=== PATIENT | male | born 1985 | race Caucasian/White ===

== ENCOUNTER 2022-12-21 09:28 | Emergency (ER) | payer MEDICAID ==
[~2022-12-21] VITALS: Ht 180.3 cm; Wt 110.0 kg
[2022-12-21 10:47] LABS: BASOPHILS % (AUTO) 0.8 % (0.0-2.0); EOSINOPHILS % (AUTO) 3.6 % (1.0-6.0); HEMATOCRIT 46.5 % (41-53); HEMOGLOBIN 15.5 g/dL (13.5-17.5); LYMPHOCYTES # (AUTO) 1.8 K/uL (1.0-4.8); LYMPHOCYTES % (AUTO) 21.7 % (22.0-44.0); MEAN CORPUSCULAR HEMOGLOBIN 26.3 pg (26.0-34.0); MEAN CORPUSCULAR HGB CONC 33.2 G/dL (31.0-37.0); MEAN CORPUSCULAR VOLUME 79 fL (80-100); MONOCYTES # (AUTO) 0.5 K/uL (0.1-1.0); MONOCYTES % (AUTO) 5.9 % (2.0-9.0); NEUTROPHILS # (AUTO) 5.6 K/uL (1.8-7.7); PLATELET COUNT (AUTO) 238 K/uL (150-450); RED BLOOD CELL COUNT(AUTO) 5.87 MIL/uL (4.50-5.90); RED CELL DISTRIBUTION WIDTH 13.9 % (11.5-14.5)
[2022-12-21 10:56] LABS: COVID AG,FIA SOURCE NASAL SWAB
[2022-12-21 10:58] LABS: ANION GAP 11 mmol/L (8-16); CALCIUM, TOTAL 9.2 mg/dL (8.8-10.5); CARBON DIOXIDE 27 mmol/L (22-29); CHLORIDE 98 mmol/L (98-107); CREATININE 1.16 mg/dL (0.60-1.30); GLOMERULAR FILTR. RATE CALC > 60 mL/min (>60); GLUCOSE,RANDOM 285 mg/dL (70-110); POTASSIUM 3.6 mmol/L (3.5-5.1); SODIUM SERUM 136 mmol/L (136-145); UREA NITROGEN, BLOOD 16 mg/dL (7-18)
[2022-12-21 11:03] LABS: ALANINE AMINOTRANSFERASE 210 U/L (12-78); ALBUMIN 3.9 g/dL (3.4-5.0); ALKALINE PHOSPHATASE 117 U/L (46-116); ASPARTATE AMINOTRANSFERASE 116 U/L (15-37); BILIRUBIN,TOTAL 0.4 mg/dL (0.1-1.0); TOTAL PROTEIN, SERUM 8.5 g/dL (6.4-8.2)
[2022-12-21 11:08] LABS: B-TYPE NATRIURETIC PEPTIDE 7 pg/mL (0-100)
[2022-12-21] MEDS ORDERED: AmLODIPine BESYLATE 5 MG TABLET PO ONE (12:30)
[2022-12-21 13:15] VITALS: BP 174/107
[2022-12-21] MEDS ORDERED: AMLO-257 PO (13:23)
== END 2022-12-21 14:13 | disposition home or self-care (01) ==
LOC: EMS 09:30
DX: I10 Essential (primary) hypertension (principal); R74.01 Elevation of levels of liver transaminase levels; I51.7 Cardiomegaly; R73.9 Hyperglycemia, unspecified; Z20.822 Contact with and (suspected) exposure to COVID-19
CPT/HCPCS: 71045; 80053; 83880; 84484; 85025; 93005; 99285; 36415-L1; 36415-TC